=== PATIENT | female | born 1950 | race Caucasian/White ===

== ENCOUNTER 2019-02-08 07:28 | Emergency (ER) | payer OTHER, MEDICARE ==
[~2019-02-08] VITALS: Ht 154.9 cm; Wt 79.1 kg
[2019-02-08 07:57] VITALS: BP 123/74
== END 2019-02-08 08:08 | disposition home or self-care (01) ==
LOC: ED 07:28
DX: I10 Essential (primary) hypertension (principal); Z88.6 Allergy status to analgesic agent; Z88.8 Allergy status to other drugs, medicaments and biological substances